=== PATIENT | male | born 2000 | race Caucasian/White ===

== ENCOUNTER 2019-07-23 21:23 | Emergency (ER) | payer SELFPAY ==
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
[2019-07-24 09:37] VITALS: BP 137/69; TEMP 98.7; O2SAT 98
== END 2019-07-23 23:17 | disposition home or self-care (01) ==
LOC: ER 21:23
DX: S13.4XXA Sprain of ligaments of cervical spine, initial encounter (principal); S00.90XA Unspecified superficial injury of unspecified part of head, initial encounter; V44.5XXA Car driver injured in collision with heavy transport vehicle or bus in traffic accident, initial encounter; Y93.89 Activity, other specified; Y92.9 Unspecified place or not applicable
CPT/HCPCS: 99284